=== PATIENT | female | born 1950 | race Hispanic/Latino ===

== ENCOUNTER → 2017-10-07 | Outpatient (CLI) | payer MEDICARE, OTHER ==
--- NOTE | 2017-10-07 19:51 | Diagnostic Imaging Report ---
PROCEDURE:C-SPINE COMPLETE COMPARISON:None. INDICATIONS:NECK PAIN, NO TRAUMA FINDINGS: Normal mineralization. No acute displaced fracture or dislocation. Degenerative disc changes in the cervical spine, with presence of bridging osteophytes. Grade 1 anterolisthesis of C6 on C7. Bilateral oblique views show patent neural foramina. Bilateral uncovertebral hypertrophy. Soft tissues are grossly unremarkable. 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 Daniel Liz M.D. Dictated by: Daniel Liz M.D. on 10/07/2017 at 19:58 Electronically approved by: Daniel Liz M.D. on 10/07/2017 at 19:58
== END ==
LOC: RAD 10:09
PROVIDERS: ATTEND Family Medicine
DX: M54.2 Cervicalgia (principal)
CPT/HCPCS: 72050

== ENCOUNTER → 2017-12-01 | Outpatient (CLI) | payer MEDICARE ==
--- NOTE | 2017-12-01 12:25 | Diagnostic Imaging Report ---
EXAMINATION: MRI of the cervical spine without contrast HISTORY: Neck pain and right shoulder pain for last 3 months COMPARISON: none. TECHNIQUE: Sagittal T1, T2, STIR; axial T2, gradient echo. FINDINGS: Curvature: Normal lordosis. Vertebrae: No evidence of neoplasm, infection, or fracture. Diffuse increased bone marrow signal intensity may be related to osteopenia. Moderate to marked endplate degenerative changes with subchondral bone marrow edema mainly on the right side at C3-C4. Foramen magnum: No mass, Chiari malformation, or basilar invagination. Spinal Cord: Normal size and signal intensity. Soft Tissues: Unremarkable. Degenerative changes: C1-C2: Unremarkable. C2-C3: Mild bilateral facet process without stenosis C3-C4: -Prominent degenerative changes of the right facet joint with joint effusion, bone marrow edema extending to the right C3 and C4 pedicles, periarticular soft tissue swelling and small posterior synovial cyst, most likely related to degenerative synovitis. -Asymmetric to the right disc osteophyte, bilateral uncovertebral and facet arthrosis. Mild left and moderate right foraminal stenoses. -Mild degenerative spinal canal stenosis. C4-C5: Small disc osteophyte osteophyte complex formation, bilateral uncovertebral and facet arthrosis. No significant canal or foraminal stenosis. C5-C6: Disc osteophyte complex formation, bilateral uncovertebral and facet arthrosis. Mild right and moderate left foraminal stenosis. C6-C7: Small disc osteophyte formation, mild bilateral uncovertebral opacity or facet arthrosis. Minimal degenerative anterolisthesis. No significant canal or foraminal stenosis. C7-T1: Mild facet arthrosis with minimal anterolisthesis. No stenoses T1-T2: Symmetric disc bulge and facet necrosis. Minimal anterolisthesis. No stenosis. IMPRESSION: 1. 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 2. Mild degenerative spinal canal, moderate right and mild left foraminal stenoses at C3-C4. 3. Minimal degenerative anterolisthesis at C7-T1 and T1-T2. Signed by: Dr. Leslie Anderson M.D. on 12/01/2017 12:22 PM
== END ==
LOC: MRI 09:40
PROVIDERS: ATTEND Family Medicine
DX: M50.80 Other cervical disc disorders, unspecified cervical region (principal)
CPT/HCPCS: 72141

== ENCOUNTER → 2018-03-25 | Outpatient (CLI) | payer MEDICARE ==
--- NOTE | 2018-03-25 12:11 | Diagnostic Imaging Report ---
PROCEDURE:ABDOMINAL ULTRASOUND COMPARISON:None. INDICATIONS:ABDOMEN PAIN FINDINGS: Liver: 16.2 cm. Increased hepatic parenchymal echogenicity. No focal mass. Main portal vein: 1 cm. Hepatopedal flow. Gallbladder: No stones or wall thickening. Common Bile Duct: 0.2 cm. No echogenic filling defect. Sonographic Elder's sign: Negative. Right kidney: 10 cm. No solid or cystic mass, echogenic calculi, or hydronephrosis. Normal parenchymal echogenicity. Left kidney: 9.4 cm. No solid or cystic mass, echogenic calculi, or hydronephrosis. Normal parenchymal echogenicity. Spleen: 9.4 cm. Pancreas: The visualized portions of the pancreas are normal. Inferior vena cava: Normal. Aorta: Normal. Ascites: None. CONCLUSION: Hepatic steatosis. Otherwise unremarkable abdominal ultrasound. Dictated by: Pop Farias M.D. on 03/25/2018 at 12:13 Electronically approved by: Pop Farias M.D. on 03/25/2018 at 12:13
== END ==
LOC: US 09:50
PROVIDERS: ATTEND Family Medicine
DX: R10.9 Unspecified abdominal pain (principal)
CPT/HCPCS: 76700